=== PATIENT | female | born 1990 | race Hispanic/Latino ===

== ENCOUNTER → 2024-01-16 | Outpatient (CLI) | payer OTHER ==
[~2024-01-16] MED LIST: ISOVUE-370 76% 100ML VIAL As Ordered ONE
== END ==
LOC: M RAD 07:42
PROVIDERS: ATTEND Physician Assistant
DX: M95.4 Acquired deformity of chest and rib (principal); Z42.1 Encounter for breast reconstruction following mastectomy; L91.0 Hypertrophic scar; Z90.13 Acquired absence of bilateral breasts and nipples
CPT/HCPCS: 71260; Q9967